=== PATIENT | female | born 1985 | race Caucasian/White ===

== ENCOUNTER 2017-01-14 13:01 | Emergency (ER) | payer MEDICAID ==
[2017-01-14 13:22] VITALS: BP 129/81
--- NOTE | 2017-01-14 13:57 | EDM.PDOC ---
Scribed by Tika Patel 01/14/17 1356 for Diogenes Andrade MD ED HPI GENERAL MEDICAL PROBLEM - General Chief Complaint: General Stated Complaint: PAIN AFTER C SECRION [id number] Time Seen by Provider: 01/14/17 13:26 Source of Information: Reports: Patient, RN, RN notes reviewed History Limitations: Reports: No limitations - History of Present Illness INITIAL COMMENTS - FREE TEXT/NARRATIVE: Patient concerned about clear-yellow drainage at left edge of incision. Location: Reports: abdomen Quality: Reports: Ache Severity: moderate Improves with: Reports: None Worsens with: Reports: None Associated Symptoms: Reports: no other symptoms Left Abdomen Pain Score (Numeric/FACES): 6 - Related Data Allergies Allergy/AdvReac Type Severity Reaction Status Date / Time No Known Allergies Allergy Verified 01/14/17 13:17 Home Meds: Home Meds oxyCODONE HCl [Oxycodone HCl] 1 - 2 tab PO Q4H PRN 01/14/17 [History] Past Medical History - Past Health History Medical/Surgical History: Denies Medical/Surgical History HEENT History: Reports: None Cardiovascular History: Reports: None Respiratory History: Reports: None Gastrointestinal History: Reports: None Genitourinary History: Reports: None [employer] History: Reports: None : 4 Para: 3 Other OB/BYN History: L3 Musculoskeletal History: Reports: Back pain, chronic Neurological History: Reports: Migraines, Other (see below) Other Neuro History: bulging disc in back Psychiatric History: Reports: None Endocrine/Metabolic History: Reports: None Hematologic History: Reports: None Immunologic History: Reports: None Oncologic (Cancer) History: Reports: None Dermatologic History: Reports: None - Infectious Disease History Infectious Disease History: Reports: None - Past Surgical History Head Surgeries/Procedures: Reports: None (postop day #5. x3.) GI Surgical History: Reports: Appendectomy Female Surgical History: Reports: section Social & Family History - Family History Family Medical History: Noncontributory - Tobacco Use Smoking Status *Q: Current Every Day Smoker Years of Tobacco use: 10 Packs/Tins Daily: 0.5 Used Tobacco, but Quit: No Second Hand Smoke Exposure: Yes - Caffeine Use Caffeine Use: Reports: Soda - Recreational Drug Use Recreational Drug Use: No - Living Situation & Occupation Living situation: Reports: with family ED ROS GENERAL - Review of Systems Review Of Systems: ROS reveals no pertinent complaints other than HPI. ED EXAM, GENERAL - Physical Exam Exam: See Below Exam Limited By: No limitations General Appearance: alert, WD/WN, no apparent distress Respiratory/Chest: no respiratory distress Cardiovascular: regular rate, rhythm, no murmur GI/Abdominal: normal bowel sounds, soft, non tender, no organomegaly, no distention, no abnormal bruit, no mass Neurological: alert, oriented, CN II-XII intact, normal cognition, normal gait, normal reflexes, no motor/sensory deficits Psychiatric: normal affect, normal mood Skin Exam: Other ( surgical incision intact. No erythema. Small amount of yellow serou drainage on left lateral steri-strips. No purulent drainage. ) Course - Vital Signs Last Recorded V/S: Last Vital Signs Temp 36.2 C 01/14/17 13:18 Pulse 72 01/14/17 13:18 Resp 16 01/14/17 13:18 BP 129/81 01/14/17 13:18 Pulse Ox 100 01/14/17 13:18 - Orders/Labs/Meds Orders: Active Orders 24 hr Category Date Time Status CULTURE WOUND [RM] Stat Lab 01/14/17 13:41 Received Departure - Departure Time of Disposition: 13:41 Disposition: Home, Self-Care 01 Condition: good Clinical Impression: Encounter for postoperative wound check Instructions: Sterile Tape Wound Care, Wound Dehiscence, [id number] Forms: ED Department Discharge Additional Instructions: Return to ER if any further problems. Follow up with your [employer] doctors plans. - My Orders Last 24 Hours: My Active Orders 01/14/17 13:41 CULTURE WOUND [RM] Stat - Assessment/Plan Last 24 Hours: My Active Orders 01/14/17 13:41 CULTURE WOUND [RM] Stat I have read and agree with the documentation that has been completed regarding this visit. By signing this record, I attest that the documentation was completed in my physical presence and is an accurate record of the encounter.
== END 2017-01-14 13:53 | disposition home or self-care (01) ==
LOC: DL.ED 13:01
DX: O90.89 Other complications of the puerperium, not elsewhere classified (principal); R10.9 Unspecified abdominal pain; Z90.49 Acquired absence of other specified parts of digestive tract; F17.210 Nicotine dependence, cigarettes, uncomplicated
CPT/HCPCS: 87070; 87077; 87186; 99283

== ENCOUNTER 2024-08-30 11:08 | Emergency (ER) | payer OTHER, MEDICAID ==
[2024-08-30 13:31] VITALS: BP 116/75; PULSE 80
== END 2024-08-30 13:39 | disposition home or self-care (01) ==
LOC: DL.ED 11:08
DX: R20.0 Anesthesia of skin (principal); Z79.891 Long term (current) use of opiate analgesic; V87.7XXA Person injured in collision between other specified motor vehicles (traffic), initial encounter
CPT/HCPCS: 72125; 99284